=== PATIENT | female | born 2000 | race Caucasian/White ===

== ENCOUNTER 2020-03-26 22:45 | Emergency (ER) | payer OTHER ==
--- NOTE | 2020-03-26 23:27 | EDM.PDOC ---
ED HPI GENERAL MEDICAL PROBLEM - General Chief Complaint: General Stated Complaint: SORE THROAT Time Seen by Provider: 03/26/20 23:10 - History of Present Illness INITIAL COMMENTS - FREE TEXT/NARRATIVE: HISTORY AND PHYSICAL: History of present illness: This is a 19-year-old female who presents ER today secondary to 3 days of headache, stiff neck, swelling to her right submandibular region. Patient denies any recent fevers, shakes, chills, nausea, vomiting, diarrhea, dysuria, frequency, urgency, chest pain, shortness of breath, cough, URI symptoms. Patient reports he does have some mild rhinorrhea. 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 Past medical history: As per history of present illness and as reviewed below otherwise noncontributory. Surgical history: As per history of present illness and as reviewed below otherwise noncontributory. Social history: No reported history of drug or alcohol abuse. Family history: As per history of present illness and as reviewed below otherwise noncontributory. Physical exam: HEENT: Atraumatic, normocephalic, pupils reactive, negative for conjunctival pallor or scleral icterus, mucous membranes moist, throat clear, neck supple, nontender, trachea midline. Lungs: Clear to auscultation, breath sounds equal bilaterally, chest nontender. Heart: S1S2, regular, negative for clicks, rubs, or JVD. Abdomen: Soft, nondistended, nontender. Negative for masses or hepatosplenomegaly. Negative for costovertebral tenderness. Pelvis: Stable nontender. Genitourinary: Deferred. Rectal: Deferred. Extremities: Atraumatic, negative for cords or calf pain. Neurovascular unremarkable. Neuro: Awake, alert, oriented. Cranial nerves II through XII unremarkable. Cerebellum unremarkable. Motor and sensory unremarkable throughout. Exam nonfocal. Neck supple, no nuchal rigidity, no photophobia, no Kernig's sign or Brudzinski sign, patient does not present with signs or symptoms of be consistent with meningitis. Oropharynx clear without erythema or exudates. Patient does have some mild right submandibular tender lymphadenopathy. TMs intact pearly collins no bulging. Assessment and plan: 19-year-old female who presents ER today with stiffness in her neck and headache for several days. Patient's presentation does not appear to be consistent with meningitis. Patient's oropharynx was clear with no evidence of pharyngitis. Patient's TMs were normal. Etiology of the patient's symptoms are unclear however at this time the patient appears to be stable with no concern for significant infection. I did discuss with the patient the possibility of viral infection specifically coronavirus. Patient reports she does not believe that she has coronavirus and declined testing. Patient be discharged on ibuprofen and will follow up with her primary care doctor if symptoms persist. Definitive disposition and diagnosis as appropriate pending reevaluation and review of above. headache, stiff neck Pain Score (Numeric/FACES): 7 - Related Data Allergies Allergy/AdvReac Type Severity Reaction Status Date / Time No Known Allergies Allergy Verified 03/26/20 23:03 Home Meds: Home Meds Ibuprofen 600 mg PO Q6HR PRN #30 tablet 03/26/20 [Rx] Past Medical History Psychiatric History: Reports: Anxiety - Past Surgical History HEENT Surgical History: Reports: Oral Surgery Social & Family History - Family History Family Medical History: Noncontributory - Tobacco Use Tobacco Use Status *Q: Never Tobacco User Second Hand Smoke Exposure: No - Caffeine Use Caffeine Use: Reports: None - Recreational Drug Use Recreational Drug Use: No ED ROS GENERAL - Review of Systems Review Of Systems: See Below ED EXAM, GENERAL - Physical Exam Exam: See Below Course - Vital Signs Last Recorded V/S: Last Vital Signs Temp 97 F 03/26/20 22:49 Pulse 78 03/26/20 22:49 Resp 17 03/26/20 22:49 BP 129/82 03/26/20 22:49 Pulse Ox 99 03/26/20 22:49 Departure - Departure Time of Disposition: 23:25 Disposition: Home, Self-Care 01 Clinical Impression: Headache, Cervical strain - Discharge Information Instructions: General Headache Without Cause, Muscle Strain, [id number] Referrals: PCP,Not In Area [Primary Care Provider] - Additional Instructions: The etiology of your symptoms are unclear but did not appear to be secondary to any significant or severe infection. We are recommending ibuprofen 600 mg every 6 hours for the next 1 to 2 days. If your symptoms worsen or if you start developing fevers please make an appointment to see your family doctor or return to the ED for reevaluation. The following information is given to patients seen in the emergency department who are being discharged to home. This information is to outline your options for follow-up care. We provide all patients seen in our emergency department with a follow-up referral. The need for follow-up, as well as the timing and circumstances, are variable depending upon the specifics of your emergency department visit. If you don't have a primary care physician on staff, we will provide you with a referral. We always advise you to contact your personal physician following an emergency department visit to inform them of the circumstance of the visit and for follow-up with them and/or the need for any referrals to a consulting specialist. The emergency department will also refer you to a specialist when appropriate. This referral assures that you have the opportunity for follow-up care with a specialist. All of these measure are taken in an effort to provide you with optimal care, which includes your follow-up. Under all circumstances we always encourage you to contact your private physician who remains a resource for coordinating your care. When calling for follow-up care, please make the office aware that this follow-up is from your recent emergency room visit. If for any reason you are refused follow-up, please contact the [facility] Emergency Department at and asked to speak to the emergency department charge nurse. Sepsis Event Note (ED) - Evaluation Sepsis Screening Result: No Definite Risk - Focused Exam Vital Signs: Vital Signs Temp Pulse Resp BP Pulse Ox 03/26/20 22:49 97 F 78 17 129/82 99
[2020-03-26] MEDS ORDERED: Ibuprofen 600 MG Tab PO ONE (23:30)
== END 2020-03-26 23:44 | disposition home or self-care (01) ==
LOC: MW.ED 22:45
DX: S16.1XXA Strain of muscle, fascia and tendon at neck level, initial encounter (principal); X58.XXXA Exposure to other specified factors, initial encounter
CPT/HCPCS: 99283; A9270; 99282